=== PATIENT | male | born 1945 | race Caucasian/White ===

== ENCOUNTER → 2019-06-28 | Outpatient (CLI) | payer MEDICARE, BC ==
--- NOTE | 2019-06-28 13:04 | US ---
EXAMINATION TYPE: US venous doppler duplex LE RT DATE OF EXAM: 06/28/2019 12:47 PM COMPARISON: NONE CLINICAL HISTORY: I80.9 Phlebitis and thrombophlebitis of unspecifi. SIDE PERFORMED: Right TECHNIQUE: The lower extremity deep venous system is examined utilizing real time linear array sonog mango with graded compression, doppler sonography and color-flow sonography. VESSELS IMAGED: External Iliac Vein (EIV) Common Femoral Vein Deep Femoral Vein Greater Saphenous Vein * Femoral Vein Popliteal Vein Proximal Calf Veins (* superficial vessels) Grayscale, color doppler, spectral doppler imaging performed of the deep veins of the right lower ext remity. There is normal flow, compressibility, vascular waveforms. Right Leg: Negative for DVT IMPRESSION: No sonographic evidence of deep venous thrombosis within the right lower extremity.
== END ==
LOC: RADUSWWP 12:07
PROVIDERS: ATTEND Orthopaedic Surgery
DX: I80.9 Phlebitis and thrombophlebitis of unspecified site (principal); M25.571 Pain in right ankle and joints of right foot; M25.071 Hemarthrosis, right ankle

== ENCOUNTER → 2022-09-08 | Outpatient (CLI) | payer MEDICARE, BC ==
--- NOTE | 2022-09-08 11:14 | CT ---
EXAMINATION TYPE: CT shoulder RT wo con DATE OF EXAM: 09/08/2022 COMPARISON: None HISTORY: Right shoulder pain, possible rotator cuff tear CT DLP: 553.9 mGycm Automated exposure control for dose reduction was used. FINDINGS: There is severe narrowing of the glenohumeral joint with remodeling of the glenoid. Tiny cystic orourke es likely relate to geodes formation within the glenoid. There is spurring of the humeral head with n o acute fracture or dislocation. Tiny cysts are also seen involving the superior lateral margin of th e humeral head which can be associated with impingement. There is severe narrowing of the AC joint. Clavicle is somewhat inferior relative to acromion which m ay results in mass effect upon the rotator cuff. Hypertrophic and degenerative changes spine. Visualized lung field is clear. Coronary artery calcific ation noted IMPRESSION: 1. Severe glenohumeral joint arthropathy as discussed above complete loss of joint space and remodeli ng of the glenoid. 2. Severe AC joint arthropathy. 3. Hypertrophic and degenerative changes of the visualized vertebral column. 4. Coronary artery calcification correlate clinically.
== END | disposition home or self-care (01) ==
LOC: RADCTMAIN 10:08
PROVIDERS: ATTEND Orthopaedic Surgery Sports Medicine
DX: M19.011 Primary osteoarthritis, right shoulder (principal); I25.10 Atherosclerotic heart disease of native coronary artery without angina pectoris

== ENCOUNTER → 2022-10-05 | Outpatient (CLI) | payer MEDICARE, BC ==
[2022-10-05 13:17] LABS: Partial Thromboplastin Time 25.7 sec (22.0-30.0)
[2022-10-05 15:21] LABS: Prothrombin Time 10.8 sec (9.0-12.0)
[2022-10-05 19:28] LABS: HGB 13.9 g/dL (13.0-17.0); MCHC 32.3 g/dL (32.0-37.0); MCV 98.9 fL (80.0-97.0); Mean Platelet Volume 9.9 fL (9.5-12.2); NRBC Per 100 WBC 0 /100 WBCS (0.0-0.0); Platelet Count 219 X 10*3/uL (140-440); RBC 4.35 X 10*6/uL (4.40-5.60); RDW 13.6 % (11.5-14.5); WBC 5.48 X 10*3/uL (4.50-10.00)
[2022-10-05 20:29] LABS: Appearance,Urine Clear (Clear); Bilirubin,Urine Negative (Negative); Blood,Urine Negative (Negative); Color,Urine Yellow (Yellow); Ketones,Urine Negative (Negative); Nitrite,Urine Negative (Negative); Specific Gravity,Urine 1.023 (1.001-1.030); Urobilinogen,Urine 0.2 (0.2,1.0)
[2022-10-06 10:23] LABS: Albumin 3.8 g/dL (3.8-4.9); Albumin/Globulin Ratio 1.58 (1.60-3.17); Anion Gap 6.2 mmol/L (10.00-18.00); BUN/Creat Ratio 16.8 Ratio (12.00-20.00); Blood Urea Nitrogen 16.8 mg/dL (9.0-27.0); Calcium 8.9 mg/dL (8.7-10.3); Carbon Dioxide 26.8 mmol/L (20.0-27.5); Globulin 2.4 g/dL (1.6-3.3); Non-African American GFR(CKD) 73.3 (60.0-200.0); Potassium 4.2 mmol/L (3.5-5.5); Total Bilirubin 0.5 mg/dL (0.30-1.20); Total Protein 6.2 g/dL (6.2-8.2)
== END | disposition home or self-care (01) ==
LOC: LABPAT 11:34
PROVIDERS: ATTEND Orthopaedic Surgery Sports Medicine
DX: Z01.812 Encounter for preprocedural laboratory examination (principal); M19.012 Primary osteoarthritis, left shoulder
CPT/HCPCS: 36415; 80053; 81003; 85027; 85610; 85730; 87070

== ENCOUNTER 2022-10-13 07:43 | Day surgery (SDC) | payer MEDICARE, BC ==
[2022-10-10 08:42] VITALS: BMI 30.7
[~2022-10-13 07:43] MED LIST: ACETAMINOPHEN TAB 500 MG TAB PO PRN; GABAPENTIN 300 MG CAP PO PRN; HYDROmorphone 0.5 MG/0.5 ML SYRINGE IVP PRN; LACTATED RINGERS 1,000 ML IV SCH; MELOXICAM 7.5 MG TAB PO PRN; MIDAZOLAM 2 MG/2 ML VIAL IV PRN; ONDANSETRON 4 MG/2 ML VIAL IVP PRN; TRANEXAMIC ACID IN NACL,ISO-OS 1,000 MG in SALINE 1 100ML.BAG IVPB PRN
[2022-10-13] MEDS ORDERED: DEXAMETHASONE SOD PHOSPHATE 4 MG/ML 1 ML VIAL IVP ONE (08:43)
[2022-10-13] MEDS ORDERED: LACTATED RINGERS 1,000 ML IV ONE ×5 (08:44→13:06)
[2022-10-13] MEDS ORDERED: MIDAZOLAM 2 MG/2 ML VIAL IVP ONE (09:05)
--- NOTE | 2022-10-13 09:14 | P.ANPRN ---
Procedure Note - Anesthesia - Nerve Block Performed Right Interscalene Single Time Out Performed: Yes Date of Procedure: 10/13/22 Procedure Start Time: :04 Procedure Stop Time: 09:15 Location of Patient: PreOp Indication: Acute Post-Operative Pain, Requested by Surgeon Sedation Type: Sedate with meaningful contact maintained Preparation: Sterile Prep, Sterile Dressing Position: Sitting Catheter: None Needle Types: Facet Needle Gauge: 21 Ultrasound used to visualize needle placement: Yes Ultrasound used to observe medication spread: Yes Injectate: 0.5% Ropivacaine (see comment for volume) (25 ml + decadron 4 mg) Blood Aspirated: No Pain Paresthesia on Injection Noted: No Resistance on Injection: Normal Image Stored and Saved: Yes Events: Uneventful and Well Tolerated
[2022-10-13] MEDS ORDERED: SENNOSIDES-DOCUSATE SODIUM 1 EACH TAB PO PRN (09:18)
[2022-10-13] MEDS ORDERED: HYDROmorphone 0.5 MG/0.5 ML SYRINGE IVP PRN ×3 (09:18)
[2022-10-13] MEDS ORDERED: METOCLOPRAMIDE 5 MG/ML 2 ML VIAL IVP PRN (09:18)
[2022-10-13] MEDS ORDERED: ONDANSETRON 4 MG/2 ML VIAL IVP PRN (09:18)
[2022-10-13] MEDS ORDERED: hydrOXYzine pamoate 25 MG CAP PO PRN (09:18)
[2022-10-13] MEDS ORDERED: diphenhydrAMINE 25 MG CAP PO PRN (09:18)
[2022-10-13] MEDS ORDERED: HYDROcodone/APAP 7.5-325MG 1 EACH TAB PO PRN ×2 (09:22)
[2022-10-13] MEDS ORDERED: NEOSTIGMINE 1 MG/ML 10 ML VIAL ONE (09:59)
[2022-10-13] MEDS ORDERED: LIDOCAINE 2% INJ 20 MG/ML (2 ML VIAL) ONE (09:59)
[2022-10-13] MEDS ORDERED: fentaNYL (PF) 50 MCG/ML 2 ML AMP ONE (09:59)
[2022-10-13] MEDS ORDERED: PROPOFOL 10 MG/ML 20 ML VIAL IV ONE (09:59)
[2022-10-13] MEDS ORDERED: ROPIVACAINE 5 MG/ML 30 ML VIAL ONE (09:59)
[2022-10-13] MEDS ORDERED: GLYCOPYRROLATE 0.2 MG/ML 2 ML VIAL ONE (09:59)
[2022-10-13] MEDS ORDERED: ROCURONIUM 10 MG/ML (5 ML VIAL) IV ONE (09:59)
[2022-10-13] MEDS ORDERED: DEXAMETHASONE SOD PHOSPHATE 4 MG/ML 1 ML VIAL ONE (09:59)
[2022-10-13] MEDS ORDERED: SUCCINYLCHOLINE CHLORIDE 200 MG/10 ML VIAL IV ONE (09:59)
[2022-10-13] MEDS ORDERED: VANCOMYCIN 1,000 MG VIAL MISCELLANE ONE (10:34)
[2022-10-13] MEDS ORDERED: ceFAZolin 1,000 MG in SODIUM CHLORIDE 0.9% 1,000 ML IRRIGATION ONE (10:35)
--- NOTE | 2022-10-13 13:13 | XR ---
EXAMINATION TYPE: XR shoulder limited RT DATE OF EXAM: 10/13/2022 CLINICAL HISTORY: Postop TECHNIQUE: Single AP view of the right shoulder was obtained. COMPARISON: None. FINDINGS: There are new postoperative changes of the right shoulder including intact shoulder prosth esis appropriately positioned with screws into the glenoid. There is extensive soft tissue swelling, subcutaneous gas, as well as joint effusion with widening of the subacromial space. The visualized ri bs are intact and unremarkable. IMPRESSION: Postsurgical changes of right shoulder arthroplasty as above.
[2022-10-13] MEDS: LACTATED RINGERS 1,000 ML IV SCH ×2 (16:28→21:26)
--- NOTE | 2022-10-13 18:48 | OP ---
OPERATIVE REPORT DRIVER SALES: Kofi Vincent PA-C PREOPERATIVE DIAGNOSIS: Right shoulder osteoarthrosis. POST PROCEDURE DIAGNOSIS: Right shoulder osteoarthrosis. OPERATION: Right reverse total shoulder arthroplasty. ANESTHESIA: General endotracheal. ESTIMATED BLOOD LOSS: 100 mL. DRAINS: None. COMPLICATIONS: None apparent. DISPOSITION: Postanesthesia care unit. INDICATIONS: Mr. Lora is a very pleasant 77-year-old male with longstanding right shoulder pain. Workup including x-rays revealed advanced osteoarthrosis of the right shoulder. At this point, it is felt this he has failed conservative management, and he would like to proceed with operative intervention. The risks of procedure were all discussed with him in detail. These risks include, but are not limited to, risk of infection, nerve damage, bleeding, pain, instability in the shoulder, loosening of the implants, and deep infection. There is also small risk of deep vein thrombosis which could lead to fatal pulmonary embolism. The patient understands the risks. All of his questions with regard to the risks of procedure were answered to his satisfaction. An appropriate informed consent was obtained. DESCRIPTION OF PROCEDURE: The patient was identified in the preoperative holding area. Surgical site was marked by both the patient and myself. He was given 2 grams of Ancef IV for prophylactic purposes. He was then transported to the operative suite. He was placed supine on the operating room table. General anesthetic was then administered and dosed per the anesthesia department without apparent complication. Examination under anesthesia was then performed of the left shoulder. He had elevation to 110 degrees. External rotation at the side was to 20 degrees. The patient was then placed in the beach chair position well-padded in preparation for surgery. Great care was taken to ensure that the cervical spine was in neutral alignment and maintained that way throughout the operative procedure. Great care was also taken to ensure that his legs were appropriately padded as well. The patient's right upper extremity was then prepped and draped in the usual sterile fashion. Standard surgical pause was undertaken to ensure that we were operating on the correct site and that appropriate preoperative antibiotics had been given. All staff in the room were in agreement, and we proceeded. The acromion, AC joint, clavicle, and coracoid were marked with a surgical pen. A planned incision starting at the level of the clavicle and extending distally over the deltopectoral interval approximately 1 cm lateral to the coracoid was then marked with a surgical pen. The incision was then made with a 10 blade scalpel. Dissection was carried down sharply to the deltoid fascia. The deltopectoral interval was then identified at the level of the clavicle. A small band retractor was then placed under the proximal deltoid. We then released the deltoid fascia on the lateral aspect of the cephalic vein. The vein was preserved and left in its bed medially. The cephalic vein was protected throughout the entire case. I then identified the clavipectoral fascia. This was incised proximally to the level of the coracoacromial ligament. The coracoacromial ligament was left intact. I then used my finger to spread the interval between the conjoint tendon and the subscapularis. I then felt for the axillary nerve which was readily palpable. I then cleared the subacromial and subdeltoid spaces of bursal and scar tissue. I then utilized a Bland retractor to hold the deltoid and expose the humeral head. I then proceeded to release the subscapularis in the anterior inferior shoulder capsule. The rotator cuff was then inspected. He did have tear of the supraspinatus. The rotator interval was identified. The course of the biceps tendon was also identified. I then released the rotator interval. This was released at the base of the coracoid and then out laterally. The subscapularis and the capsule were then released intratendinously. The subscapularis and capsule release extended distally in a lazy-S fashion approximately 1 cm medial to the biceps tendon. I then continued to release the capsule along the inferior neck in a vertical fashion to approximately the 6 o'clock position. Great care was taken to ensure that the capsule was always visualized as it was released as to avoid injuring the axillary nerve. I then brought a Garcia marketing sales consultant with the arm externally rotated and abducted. I continued to release the capsule inferomedially to the 4 o'clock position. The inferior osteophytes were now removed as well. This was done with a rongeur. I then proceeded with preparation of the humerus. I removed all the goat's vivas osteophytes. I then removed the subchondral plate from the superior aspect of the humeral head utilizing a large rongeur. I then used the starting reamer to gain access to the humeral canal. This was 1 cm medial to the rotator cuff insertion and 1 cm posterior to the bicipital groove. I then prepared the humeral canal with hand reaming. I started with a 6 mm reamer and progressed incrementally until firm resistance was encountered at 14 mm. The reamer handle was then left in place. I then utilized a humeral resection guide set at 30 degrees of retrotorsion. The cutting block was then set 1 to 2 mm above the insertion of the rotator cuff. I then proceeded to osteotomize the humeral head with an oscillating saw. I then removed the resection guide and then completed the osteotomy. I then proceeded with trial stem placement. A trial size 14 was then broached in the canal starting with a 6 mm broach up to a 14 broach. The 14 trial stem was then left in place. I made a decision to proceed with a reverse total shoulder arthroplasty given his rotator cuff tear. At this point, I did release the biceps tendon. This was tenotomized at the level of the superior labrum. A bone hook was then used to pull the humerus out laterally. I then inspected the joint for any loose bodies. He did have multiple medium-sized loose bodies. These were all removed. The Bhattman retractor was then placed on the posterior glenoid rim. The arm was placed approximately 80 degrees of abduction and in slight flexion on the Garcia stand. I then proceeded to remove the hypertrophic labrum to definitively identify the actual glenoid. I then utilized a mini base plate starting guide. The pin was placed in the center of the glenoid with approximately 10 degrees of inferior tilt. I then utilized the mini base plate reamer. Reaming was done as minimal as possible as to preserve as much subchondral bone as possible. I then inserted the real mini base plate over the guide pin. This was impacted firmly onto the glenoid. The threaded guide pin was then removed. I then measured for length. A 30 mm central screw was then placed. The screw had an outstanding purchase in bone. I was able to rotate the scapula through the screwdriver when the screw was fully seated. I then proceeded to place the peripheral locking screws. The inferior screw was 25 mm. The anterior and posterior screws were 15 mm, and the superior screw was 20 mm in length. The Stanford taper was then dried. I used a standard 36 mm glenosphere. It was offset slightly as to inferiorize the glenosphere slightly. The Stanford taper was dried, and then the real glenosphere was impacted onto a dry Stanford taper. I then proceeded with trial. I utilized a trial tray and poly. It was a mildly difficult reduction. The shoulder was stable throughout a full range of motion. There was no impingement noted. The shoulder was then redislocated. I made a decision to proceed with the standard tray and a standard poly. The wound was then thoroughly irrigated with sterile saline solution with antibiotic added via pulsed lavage. I also utilized the Irrisept solution at this time. The trial humeral component was removed. I had the car sales representative open a [employer] size 14 mini stem, a standard tray, and a standard poly. The 14 mini stem was then impacted into the canal in approximately 30 degrees of retrotorsion. The Stanford taper was dried, and then the standard tray and standard poly were then impacted onto the real stem with a dry Stanford taper. The shoulder was again reduced. Again, it was a fairly difficult reduction. It was stable throughout a full range of motion. There was no impingement noted. The conjoint tendon was without any undue tension. I felt for the axillary nerve which was also readily palpable. At this point in time, no further work was deemed necessary. The shoulder was again thoroughly irrigated with sterile saline solution with antibiotic added via pulse lavage. The remaining Irrisept solution was also utilized at this time. Approximately 500 mg of vancomycin powder was then placed deep. The deltopectoral interval was then reapproximated with 0 Vicryl interrupted suture. The subcutaneous tissue was again thoroughly irrigated, and then the remaining 500 mg of vancomycin powder was then placed subcutaneously. The subcutaneous tissue was closed with 2-0 Vicryl interrupted suture, and the skin was closed with a running 3-0 Quill suture. Dermabond was applied to the incision. A sterile dressing was applied, and the patient's right upper extremity was placed into a standard sling. All sponge and needle counts were deemed correct prior to closure. The patient tolerated the procedure without apparent complication. He was transferred to the recovery room in stable condition. MMODL / IJN: [id number] / MAKENZIE
[2022-10-13] MEDS: CALCIUM CARBONATE 500 MG CHEWABLE PO PRN ×2 (18:57→23:19)
[2022-10-14] MEDS: LACTATED RINGERS 1,000 ML IV SCH (00:59)
--- NOTE | 2022-10-14 07:16 | CONS ---
CONSULTATION REASON FOR CONSULTATION: Advice regarding pulmonary embolism and other medical issues, requested by Orthopedic Surgery. HISTORY OF PRESENT ILLNESS: This 77-year-old gentleman with a past medical history of multiple medical problems including DVT and pulmonary embolism, underwent right shoulder arthroplasty. The patient was taking Xarelto. There is no history of any fever, rigors, chills, chest pain, palpitations, shortness of breath at this time. PAST MEDICAL HISTORY: Reviewed and include DVT, pulmonary embolism. HOME MEDICATIONS: Reviewed and include Xarelto. ALLERGIES: None. FAMILY HISTORY: No history of heart disease or strokes in the family. SOCIAL HISTORY: Previous history of smoking. REVIEW OF SYSTEMS: 14-point review of systems is negative except as mentioned earlier. PHYSICAL EXAMINATION: VITAL SIGNS: Pulse is 50, blood pressure is 170/75, respirations 16. HEENT: Conjunctivae normal. NECK: No JVD. CARDIOVASCULAR: S1, S2, muffled. RESPIRATION: Breath sounds diminished at the bases. No rhonchi. No crackles. ABDOMEN: Soft, nontender. LEGS: No edema. No swelling. NERVOUS SYSTEM: No focal deficit. SKIN: No ulcer, rash, bleeding. JOINTS: Status post right shoulder arthroplasty. LABORATORY DATA: Labs are not available. ASSESSMENT: 1. Status post right shoulder arthroplasty. 2. History of pulmonary embolism. 3. History of deep venous thrombosis. 4. History of multiple medical issues. RECOMMENDATIONS: In this 77-year-old gentleman, who was admitted after surgery at this time, the patient is currently stable. I would recommend to continue the current medications and DVT prophylaxis. Initiate Xarelto tomorrow and closely follow with primary physician in the outpatient setting. We will follow the patient closely with you. Thank you for letting us participate in the care of this patient. MMODL / IJN: [id number] /
[2022-10-14] MEDS ORDERED: PANTOPRAZOLE 40 MG TABLET PO SCH (07:30)
[2022-10-14 07:50] VITALS: BP 101/63; PULSE 85; RESP 16; TEMP 97.9
[2022-10-14] MEDS ORDERED: RIVAROXABAN 10 MG TAB PO SCH (09:00)
[2022-10-14] MEDS ORDERED: MULTIVITAMINS, THERA 1 EACH TAB PO SCH (09:00)
[2022-10-14 09:03] LABS: Basophils # (A) 0.01 X 10*3/uL (0.00-0.10); Basophils % (A) 0.1 %; Eosinophils # (A) 0 X 10*3/uL (0.04-0.35); Eosinophils % (A) 0 %; HCT 36.3 % (39.6-50.0); HGB 12.2 g/dL (13.0-17.0); Immature Grans, Automated 0.5 %; Lymphocytes # (A) 1.49 X 10*3/uL (0.90-5.00); Lymphocytes % (A) 11.5 %; MCH 32.5 pg (27.0-32.0); MCHC 33.6 g/dL (32.0-37.0); MCV 96.8 fL (80.0-97.0); Monocytes # (A) 1.05 X 10*3/uL (0.20-1.00); Monocytes % (A) 8.1 %; NRBC Per 100 WBC 0 /100 WBCS (0.0-0.0); Neutrophils # (A) 10.31 X 10*3/uL (1.80-7.70); Neutrophils % (A) 79.8 %; Platelet Count 208 X 10*3/uL (140-440); RBC 3.75 X 10*6/uL (4.40-5.60); RDW 13.2 % (11.5-14.5); WBC 12.93 X 10*3/uL (4.50-10.00)
--- NOTE | 2022-10-15 05:10 | PN ---
PROGRESS NOTE DATE OF SERVICE: 10/14/2022 SUBJECTIVE: This 77-year-old gentleman, who was admitted after shoulder arthroplasty . No chest pain. No palpitation. OBJECTIVE: VITAL SIGNS: Pulse 85, blood pressure 101/60, and respirations 16. CHEST: Clear to auscultation. CARDIOVASCULAR: S1, S2. ABDOMEN: Soft. EXTREMITIES: Right shoulder surgery status post. LABORATORY DATA: Reviewed. ASSESSMENT: 1. Status post right shoulder surgery. 2. History of pulmonary embolism. 3. History of deep venous thrombosis. 4. History of multiple medical issues. RECOMMENDATIONS: I recommended to continue with current management and treatment. I re-initiated anticoagulation. Closely follow with primary physician. Rest of the recommendations per Orthopedic Surgery. Further recommendations to follow. MMODL / IJN: [id number] / MTDPaula
== END 2022-10-14 14:20 | disposition home or self-care (01) ==
LOC: OR 07:43 → 4SSUR 11:54 → OR 10-14 14:20
PROVIDERS: ATTEND Orthopaedic Surgery Sports Medicine
DX: M19.011 Primary osteoarthritis, right shoulder (principal); M75.101 Unspecified rotator cuff tear or rupture of right shoulder, not specified as traumatic; M24.011 Loose body in right shoulder; M25.711 Osteophyte, right shoulder; Z86.711 Personal history of pulmonary embolism; Z86.718 Personal history of other venous thrombosis and embolism; Z79.01 Long term (current) use of anticoagulants; Z79.891 Long term (current) use of opiate analgesic; Z79.899 Other long term (current) drug therapy; Z90.49 Acquired absence of other specified parts of digestive tract; Z98.890 Other specified postprocedural states; Z82.49 Family history of ischemic heart disease and other diseases of the circulatory system; Z87.891 Personal history of nicotine dependence; F10.20 Alcohol dependence, uncomplicated; G89.18 Other acute postprocedural pain
CPT/HCPCS: 23472; 64415; 76942; 85025; 88300; 73020; C1776; J2250; J3370; J1100; J2765; J0690 ×3; J2405

== ENCOUNTER → 2022-12-12 | Outpatient (CLI) | payer MEDICARE, BC | END | disposition home or self-care (01) | LOC: LABPAT 14:50 | PROVIDERS: ATTEND Orthopaedic Surgery | DX: Z01.812 Encounter for preprocedural laboratory examination (principal); M16.12 Unilateral primary osteoarthritis, left hip | CPT/HCPCS: 80053; 81003; 85027; 85610; 85730; 87070; 93005 ==

== ENCOUNTER → 2022-12-16 | Outpatient (CLI) | payer MEDICARE, BC ==
[2022-12-16 15:07] LABS: INR 1.1 (<1.2); Partial Thromboplastin Time 26.7 sec (22.0-30.0); Prothrombin Time 11.1 sec (9.0-12.0)
[2022-12-16 19:00] LABS: HCT 42.7 % (39.6-50.0); HGB 14.2 g/dL (13.0-17.0); MCHC 33.3 g/dL (32.0-37.0); MCV 96.2 fL (80.0-97.0); Mean Platelet Volume 9.9 fL (9.5-12.2); NRBC Per 100 WBC 0 /100 WBCS (0.0-0.0); Platelet Count 244 X 10*3/uL (140-440); RBC 4.44 X 10*6/uL (4.40-5.60); RDW 13.1 % (11.5-14.5); WBC 4.89 X 10*3/uL (4.50-10.00)
[2022-12-16 19:11] LABS: Albumin/Globulin Ratio 1.6 (1.60-3.17); Anion Gap 9.6 mmol/L (10.00-18.00); BUN/Creat Ratio 16.5 Ratio (12.00-20.00); Blood Urea Nitrogen 16.5 mg/dL (9.0-27.0); Calcium 8.8 mg/dL (8.7-10.3); Carbon Dioxide 25.4 mmol/L (20.0-27.5); Globulin 2.5 g/dL (1.6-3.3); Non-African American GFR(CKD) 73.3 (60.0-200.0); Potassium 4.1 mmol/L (3.5-5.5); Total Bilirubin 0.4 mg/dL (0.30-1.20); Total Protein 6.5 g/dL (6.2-8.2)
[2022-12-16 20:54] LABS: Appearance,Urine Clear (Clear); Bilirubin,Urine Negative (Negative); Blood,Urine Negative (Negative); Color,Urine Yellow (Yellow); Ketones,Urine Negative (Negative); Nitrite,Urine Negative (Negative); Specific Gravity,Urine 1.022 (1.001-1.030); Urobilinogen,Urine 0.2 (0.2,1.0)
== END | disposition home or self-care (01) ==
LOC: LABPAT 14:12
PROVIDERS: ATTEND Orthopaedic Surgery
DX: Z01.812 Encounter for preprocedural laboratory examination (principal); M16.12 Unilateral primary osteoarthritis, left hip
CPT/HCPCS: 80053; 81003; 85027; 85610; 85730; 87070

== ENCOUNTER 2022-12-23 05:45 | Day surgery (SDC) | payer MEDICARE, BC ==
[~2022-12-23 05:45] MED LIST changes: -ACETAMINOPHEN TAB 500 MG TAB PO PRN; -GABAPENTIN 300 MG CAP PO PRN; -HYDROmorphone 0.5 MG/0.5 ML SYRINGE IVP PRN; -LACTATED RINGERS 1,000 ML IV SCH; -MELOXICAM 7.5 MG TAB PO PRN; -MIDAZOLAM 2 MG/2 ML VIAL IV PRN; -ONDANSETRON 4 MG/2 ML VIAL IVP PRN; +ROPIVACAINE/EPI/CLONIDINE/KET 50 ML SYRINGE MISCELLANE PRN; -TRANEXAMIC ACID IN NACL,ISO-OS 1,000 MG in SALINE 1 100ML.BAG IVPB PRN
[2022-12-23] MEDS ORDERED: LACTATED RINGERS 1,000 ML IV SCH (05:55)
[2022-12-23] MEDS ORDERED: MIDAZOLAM 2 MG/2 ML VIAL IV PRN (05:55)
[2022-12-23] MEDS ORDERED: ONDANSETRON 4 MG/2 ML VIAL IVP PRN ×2 (06:00→10:11)
[2022-12-23] MEDS ORDERED: TRANEXAMIC ACID IN NACL,ISO-OS 1,000 MG in SALINE 1 100ML.BAG IVPB PRN (06:00)
[2022-12-23] MEDS ORDERED: KETOROLAC 15 MG/ML 1 ML VIAL IVP PRN (06:00)
[2022-12-23] MEDS ORDERED: FAMOTIDINE 20 MG/2 ML VIAL IVP PRN (06:00)
[2022-12-23] MEDS ORDERED: ACETAMINOPHEN TAB 500 MG TAB PO PRN (06:00)
[2022-12-23] MEDS ORDERED: DEXAMETHASONE SOD PHOSPHATE 10 MG/ML 1 ML VIAL IV PRN (06:00)
[2022-12-23] MEDS ORDERED: DOCUSATE 100 MG CAP PO PRN (06:00)
[2022-12-23] MEDS ORDERED: oxyCODONE ER 10 MG TAB.ER.12H PO PRN (06:00)
[2022-12-23] MEDS ORDERED: TRANEXAMIC ACID IN NACL,ISO-OS 1,000 MG in SALINE 1 100ML.BAG IV PRN (06:00)
[2022-12-23] MEDS ORDERED: ONDANSETRON 4 MG/2 ML VIAL ONE (06:46)
[2022-12-23] MEDS ORDERED: DEXAMETHASONE SOD PHOSPHATE 4 MG/ML 1 ML VIAL IVP ONE (06:47)
[2022-12-23] MEDS ORDERED: MIDAZOLAM 2 MG/2 ML VIAL IVP ONE (06:55)
[2022-12-23] MEDS ORDERED: HYDROmorphone 0.5 MG/0.5 ML SYRINGE IVP PRN ×4 (07:00→10:11)
[2022-12-23] MEDS ORDERED: ePHEDrine 50 MG/ML 1 ML VIAL ONE (07:44)
[2022-12-23] MEDS ORDERED: SODIUM CHLORIDE 0.9% (PF) 10 ML VIAL ONE (07:44)
[2022-12-23] MEDS ORDERED: TRANEXAMIC ACID IN NACL,ISO-OS 1,000 MG/100 ML BAG ONE (07:44)
[2022-12-23] MEDS ORDERED: ROPIVACAINE 5 MG/ML 30 ML VIAL ONE (07:44)
[2022-12-23] MEDS ORDERED: MIDAZOLAM 2 MG/2 ML VIAL ONE (07:44)
[2022-12-23] MEDS ORDERED: GLYCOPYRROLATE 0.2 MG/ML 2 ML VIAL ONE (07:44)
[2022-12-23] MEDS ORDERED: SUCCINYLCHOLINE CHLORIDE 200 MG/10 ML VIAL IV ONE (07:44)
[2022-12-23] MEDS ORDERED: ROCURONIUM 10 MG/ML (5 ML VIAL) IV ONE (07:44)
[2022-12-23] MEDS ORDERED: fentaNYL (PF) 50 MCG/ML 2 ML AMP ONE (07:44)
[2022-12-23] MEDS ORDERED: PROPOFOL 10 MG/ML 20 ML VIAL IV ONE (07:44)
--- NOTE | 2022-12-23 08:44 | P.ANPRN ---
Procedure Note - Anesthesia - Nerve Block Performed Left Mckinley Single Time Out Performed: Yes ([id number]) Date of Procedure: 12/23/22 Procedure Start Time: :54 Procedure Stop Time: 07:01 Location of Patient: PreOp Indication: Acute Post-Operative Pain, Requested by Surgeon Sedation Type: Sedate with meaningful contact maintained Preparation: Sterile Prep Position: Supine Catheter: None Needle Types: Pajunk Needle Gauge: 21 Ultrasound used to visualize needle placement: Yes Ultrasound used to observe medication spread: Yes Injectate: 0.5% Ropivacaine (see comment for volume) (15 mL of 0.5% ropivacaine preservative-free mixed with 5 mL of preservative-free normal saline, a total of 20 mL of block solution used.) Blood Aspirated: No Pain Paresthesia on Injection Noted: No Resistance on Injection: Normal Image Stored and Saved: Yes Events: Uneventful and Well Tolerated
[2022-12-23] MEDS ORDERED: LACTATED RINGERS 1,000 ML IV ONE (09:49)
[2022-12-23] MEDS ORDERED: NALOXONE 0.4 MG/ML 1 ML VIAL IV PRN (10:11)
[2022-12-23] MEDS ORDERED: HYDROcodone/APAP 5-325MG 1 EACH TAB PO PRN (10:11)
[2022-12-23] MEDS ORDERED: hydrOXYzine pamoate 25 MG CAP PO PRN (10:11)
--- NOTE | 2022-12-23 10:18 | FL ---
EXAMINATION TYPE: FL guidance operating room, XR Hip Limited LT DATE OF EXAM: 12/23/2022 CLINICAL HISTORY: Left hip pain and osteoarthritis. TECHNIQUE: Fluoroscopy. Intraoperative limited views left hip. COMPARISON: None. FINDINGS: Fluoroscopic guidance was provided during left hip replacement procedure performed by Dr. Rich. A total of 30 seconds of fluoroscopic time was utilized during the procedure and 6 spot im ages was acquired. Total DAP 1.2481 Gy cm2. Images show metallic hardware from total left hip arthroplasty satisfactory in position on intraopera tive images obtained. IMPRESSION: As Above.
--- NOTE | 2022-12-23 10:22 | P.OP ---
Date of Procedure: 12/23/22 Preoperative Diagnosis: 1. Left hip osteoarthritis 2. History of DVT and PE Postoperative Diagnosis: Same Procedure(s) Performed: Left direct anterior total hip arthroplasty Implants: 1. Gilbert Trident II Acetabular Cup, Size #52 2. Gilbert Insignia Size #6 Femoral Stem, Standard Offset 3. Biolox delta femoral head, 36 mm, - 5 neck Anesthesia: GETA, regional Surgeon: Bobby Rich Chemical Processing Supervisor #1: Yaniv Cano Estimated Blood Loss (ml): 200 IV fluids (ml): 1,200 Pathology: none sent Condition: stable Disposition: PACU Indications for Procedure: The patient is a very pleasant 77-year-old man who had been seeing for the last several years regards to his left hip pain. His initial set of weightbearing x- rays in my office showed mild to moderate arthritis, but his exam was consistent with severe hip arthritis has had exquisite groin pain and pain with passive range of motion of the hip. He had an MRI of the left hip which showed arthritic changes. He also underwent an image guided left hip injection and had complete relief of his symptoms. Given all of this we both agreed that degenerative changes in his hip or the most likely cause of his pain and decided to proceed with a hip replacement. He understands the potential for referred pain from his back contributing to his leg pain. I had a long discussion with the patient in the office on the potential risks and complications of an elective total hip replacement through a direct anterior approach. Risks discussed include, but are certainly not limited to, risks from anesthesia, superficial infection requiring local wound care or antibiotics, deep brenda-prosthetic joint infection and the treatment required to eradicate infection, intraoperative fracture, postoperative periprosthetic fracture, damage to local blood vessels or nerves particularly the lateral femoral cutaneous nerve, delayed wound healing requiring local wound care or possibly surgical debridement, hip dislocation, leg length discrepancy, soft tissue irritation around the total hip implant such as iliopsoas tendinitis or trochanteric bursitis, wear and osteolysis from the implants, squeaking or audible noises, groin pain, thigh pain, heterotopic ossification, stiffness, aseptic loosening of the implants, dissatisfaction with surgical outcome, need for revision surgery, DVT, PE, swelling of the operative extremity, acute coronary event, stroke, failure to thrive, and possibly loss of life or limb. The patient understands that while these are the most common complications after an elective hip replacement there are certainly other less common complications possible. They were given ample time to ask questions regarding the potential complications of a hip replacement. Following our discussion the patient provided their verbal and written consent to go forward with an elective total hip replacement. Operative Findings: Full thickness cartilage loss on the femoral head consistent with end-stage arthritis Description of Procedure: The patient was identified in the preoperative holding area and the correct hip was marked with my initials. I reviewed the procedure and consent with the patient. All of their questions were answered. The patient was then brought back into the operating room by anesthesia. While on the [facility] anesthesia was administered by the anesthesia team. Preoperative antibiotics and tranexamic acid were also given. After the patient was under anesthesia I examined their ankles to determine their preoperative leg length discrepancy. The skin over the anterior aspect of the hip was shaved to remove hair over the site of planned incision. Both feet and ankles were padded with webril and boots for the Arnold were applied. The patient was then carefully transferred onto the Arnold table. A perineal post was immediately placed. The arms were placed on arm holders and were well-padded. Both boots were secured to the spars on the Arnold table. The patient was positioned so that the pelvis was centered over the post. Nonsterile drapes were applied. A timeout was performed identifying the correct patient, operative extremity, and procedure. At this point fluoroscopy was brought in to take preoperative images of the pelvis and operative hip. Using the standing AP pelvis from the office as a template, a comparable image was obtained with fluoroscopy. A metallic bar was used to create a bi-ischial line for use as a reference to leg length adjustments during the procedure. Global offset was also measured on both the operative and nonoperative leg. Fluoroscopy was then brought out and a pre-scrub using a chlorhexidine scrub brush was performed. The operative limb was then prepped and draped in the standard sterile fashion. An anterior longitudinal incision was made lateral and distal to the ASIS. The skin and subcutaneous tissues were incised sharply. The underlying tensor fascia was identified and incised in its midportion. The fascia was dissected free from the underlying muscle and the muscle belly was retracted. A blunt tipped cobra retractor was placed over the superior neck under the muscle fibers of the gluteus minimus. The deep enveloping fascia of the tensor was incised. The anterior leash of vessels were then identified and cauterized. The fascia between the rectus and the capsule was then incised and the pre-capsular fat was excised. A second Cobra was placed inferior to the neck. The interval between the rectus and iliocapsularis and the hip capsule was developed and a retractor was placed carefully over the anterior rim of the acetabulum. A T-shaped anterior capsulotomy was performed. The superior capsular leaflet was left in place in the inferior capsular flap was excised. The Cobra retractors were placed intracapsularly. We then made a femoral neck osteotomy according to preoperative and intraoperative templating and confirmed the level of the osteotomy using fluoroscopic imaging. The femoral head was removed, passed off to the back table, and sized. The superior capsular flap was excised. Retractors were placed circumferentially exposing the acetabulum. We then circ umferentially debrided the acetabulum free of labrum and osteophytes. The pulvinar was removed to fully visualize the cotyloid fossa. We then sequentially reamed to achieve peripheral fit and excellent bleeding subchondral bone. The socket was thoroughly irrigated. The acetabular component was impacted into the appropriate position using fluoroscopy to guide version, inclination, and depth of insertion taking care to have a comparable image of the AP pelvis to the standing image taken in the office. An excellent press-fit was achieved and final position was confirmed using fluoroscopy. The press fit was augmented with bony cancellus dome screws. The liner was then impacted into the socket. Attention was then turned to the femur. The remnant dorsal lateral capsule was excised. The short external rotators were visible and protected. A bone hook was used to confirm appropriate translation of the trochanter away from the acetabulum. The leg was then extended and adducted and the bone hook was used to elevate the femur for broaching. A box osteotome and blunt tipped canal sound was then utilized to gain access to the femoral canal. We then sequentially broached the femur in appropriate anteversion until excellent torsional stability was achieved. The neck cut was brought flush to the trial broach with a calcar planar. A trial neck and head were then placed onto the b silva and the hip was atraumatically reduced under direct visualization. External rotation to 90 was performed to assess stability. Fluoroscopy was brought in. An AP and lateral fluoroscopic image of the proximal femur was obtained to assess position and fill of the trial broach. An AP of the pelvis was then obtained and matched to the preoperative image taken. A bi-ischial bar was then placed and measurements were taken to assess changes in length and offset. The hip was then carefully dislocated, the proximal femur was exposed, and the trial implants were removed. The wound and proximal femur was thoroughly irrigated using sterile saline and pulsatile lavage. The final femoral implant was dispensed and gently tapped into place generating an excellent press-fit. The trunnion was cleansed and the final head was tapped into place to engage the Stanford taper. The acetabulum was irrigated and visualized to be free of debris. The hip was carefully reduced. Stability was checked clinically with external rotation to 90 and there was no evidence of instability. Final fluoroscopic images were taken. The wound was then thoroughly irrigated and soaked with a dilute Betadine rinse for 3 minutes. 3 L of sterile saline was irrigated through the wound using pulsatile lavage. Local anesthetic cocktail was injected into the soft tissues around the surgical field. A deep drain was placed. The wound was then closed in layers. A sterile dressing was placed over the surgical incision and drain site. The drapes were taken down and the patient was carefully transferred off of the Arnold table. Following removal of the boots the leg lengths felt acceptable. The patient was then taken to recovery room having tolerated the procedure well. Yaniv Cano PA-C was required as a skilled warehouse administrative assistant for patient positioning, surgical exposure, retraction, placement of implants, and closure of the surgical wound. PLAN: The patient can weight-bear as tolerated on the operative extremity. 2 doses of postoperative antibiotics. DVT prophylaxis with Xarelto 20 mg daily given his history of DVT and PE. Also since he does have a history of PE we will consult hematology for recommendations and further guidance. Physical therapy for gait training. Discontinue drain postoperative day #1 if output is less than 100 mL per shift.
[2022-12-23] MEDS: HYDROcodone/APAP 5-325MG 1 EACH TAB PO PRN (13:19)
[2022-12-23] MEDS: LACTATED RINGERS 1,000 ML IV SCH ×2 (13:20→21:34)
--- NOTE | 2022-12-23 16:56 | P.CONS ---
History of Present Illness - Reason for Consult Consult date: 12/23/22 Management of anticoagulation - Chief Complaint Hip surgery - History of Present Illness Mr. Lora is a 77-year-old gentleman with a past medical history significant for osteoarthritis of the left hip, DVT of the left leg, and pulmonary embolism who was admitted for elective RAYMUNDO of the left hip. He underwent this procedure on 12/23/2022, which he tolerated without complications. He was previously on Coumadin given his history of VTE. Hematology has been consulted with regards to management of Xarelto in the perioperative setting. He notes he last took Xarelto on 12/19/2022 and has withheld treatment for 3 days prior to surgery. He originally had DVT in the left leg approximately 25 years ago. As far as he could recall, he did not have any provoking events, but did note that he was smoking at that time. He was subsequently had a pulmonary embolism approximately 10 years ago. 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 He was then placed on Xarelto, which he has been tolerating without bleeding diathesis. Review of Systems 14 point review of systems conducted with pertinent positives and negatives as noted per HPI Past Medical History Past Medical History: Chest Pain / Angina, Deep Vein Thrombosis (DVT), GERD/Reflux, Osteoarthritis (OA), Pulmonary Embolus (PE) Additional Past Medical History / Comment(s): DVT bilateral legs/lung approximately 7 yrs ago, chest pain many years ago, past benign colon polyps History of Any Multi-Drug Resistant Organisms: None Reported Past Surgical History: Appendectomy, Hernia Repair, Joint Replacement, Orthopedic Surgery, Tonsillectomy Additional Past Surgical History / Comment(s): Total R reverse shoulder replacement, L thumb fused, R carpal tunnel release, colonoscopies/benign polyps, cataracts removed bilaterally, umbilical hernia, hemorrhoidectomy Additional Past Anesthesia/Blood Transfusion Reaction / Comm: Pt has never had a blood transfusion. Past Psychological History: No Psychological Hx Reported Additional Psychological History / Comment(s): Pt resides with spouse Smoking Status: Former smoker Past Alcohol Use History: Occasional Additional Past Alcohol Use History / Comment(s): Pt started smoking in 1963 and quit at age 31 yrs/1975 - Past Family History Mother Family Medical History: No Reported History Father Family Medical History: Myocardial Infarction ([place]), Vascular Disorder Additional Family Medical History / Comment(s): Aneurysms, [place] in his 60s Brother(s) Family Medical History: Myocardial Infarction ([place]) Additional Family Medical History / Comment(s): [place] in his 60s Medications and Allergies Home Medications Medication Instructions Recorded Confirmed Type Multivit-Min/Folic/Vit K/Lycop 1 each PO HS 10/10/22 12/23/22 History [Men's Multivitamin Tablet] Rivaroxaban [Xarelto] 20 mg PO W/SUPPER 10/10/22 12/23/22 History Docusate [Colace] 100 mg PO BID #60 capsule 12/23/22 Rx HYDROcodone/APAP 5-325MG [[place] 1 - 2 tab PO Q6HR PRN 7 Days #32 12/23/22 Rx 5-325] tab Omeprazole 40 mg PO DAILY 30 Days #30 cap 12/23/22 Rx Allergies Allergy/AdvReac Type Severity Reaction Status Date / Time No Known Allergies Allergy Verified 12/23/22 06:12 Physical Exam Vitals: Vital Signs Temp Pulse Pulse Resp BP Pulse Ox 12/23/22 15:13 96.0 F L 65 18 94/60 97 12/23/22 12:52 96.2 F L 56 L 19 108/64 96 12/23/22 12:01 48 L 6 L 102/58 94 L 12/23/22 11:30 43 L 16 105/65 95 12/23/22 11:00 51 L 14 100/60 100 12/23/22 10:45 47 L 14 101/64 100 12/23/22 10:30 52 L 14 99/59 100 12/23/22 10:15 51 L 14 112/67 97 12/23/22 10:07 97 F L 59 L 14 112/67 97 12/23/22 07:08 55 L 16 110/74 97 12/23/22 06:11 97.7 F 62 18 123/80 96 Intake and Output 12/23/22 12/23/22 12/23/22 06:59 14:59 22:59 Intake Total 100 1650 Output Total 250 Balance 100 1400 Intake: IV 100 1650 Output: Urine 50 Estimated Blood Loss 200 Other: Weight 94.8 kg 94.8 kg - Constitutional General appearance: cooperative, no acute distress - EENT Eyes: EOMI - Respiratory Respiratory: bilateral: CTA - Cardiovascular Rhythm: regular - Gastrointestinal General gastrointestinal: no distended, normal bowel sounds, soft - Integumentary Integumentary: no rash - Neurologic Neurologic: CNII-XII intact Pump attached to the the left hip draining blood Assessment and Plan (1) Osteoarthritis of left hip Current Visit: Yes Status: Acute Code(s): M16.12 - UNILATERAL PRIMARY OSTEOARTHRITIS, LEFT HIP SNOMED Code(s): 699743513242894 (2) Deep vein thrombosis (DVT) of left lower extremity Current Visit: Yes Status: Chronic Code(s): I82.402 - ACUTE EMBOLISM AND THOMBOS UNSP DEEP VEINS OF L LOW EXTREM SNOMED Code(s): 772926239 (3) Pulmonary embolism Current Visit: Yes Status: Chronic Code(s): I26.99 - OTHER PULMONARY EMBOLISM WITHOUT ACUTE COR PULMONALE SNOMED Code(s): 12010395 Plan: History of DVT and PE -Noted to have DVT of the left lower extremity approximately 25 years ago followed by pulmonary embolism more recently approximately 10 years ago -No evidence of recurrent VTE since this time and has been on anticoagulation with therapeutic Xarelto -Given his prior episodes of VTE have been greater than 12 months, he would be at a lower thrombotic risk -There is a higher bleeding risk associated with total hip arthroplasty with a 2 to 4% 2-day risk of major bleeding -Given surgery was performed today, I recommended prophylactic anticoagulation with lovenox 40 mg subcutaneously -Anticoagulation with xarleto is often held for 48 hours after higher risk bleeding procedures -If he has no evidence of significant bleeding and is discharged on 12/24/22, xarelto could be resumed in the evening of 12/24/22 at home as long as there is no contraindication from an orthopedic perspective -Follow up with his regular traffic incident management manager outpatient for further management of xarelto
[2022-12-23] MEDS ORDERED: RIVAROXABAN 20 MG TAB PO SCH (17:30)
[2022-12-23] MEDS ORDERED: ENOXAPARIN 40 MG/0.4 ML SYRINGE SQ SCH (18:00)
--- NOTE | 2022-12-23 18:31 | P.CONS ---
History of Present Illness - Reason for Consult Consult date: 12/23/22 Mangement of medical problems Requesting physician: Bobby Rich - Chief Complaint Left hip arthroplasty - History of Present Illness 77-year-old male patient with a past medical history significant for lifelong anticoagulation for recurrent pulmonary embolism, osteoarthritis of the left hip, GERD and obesity had left hip arthroplasty done this morning by Dr. Tashia canales. On direct questioning patient complained of some postop pain otherwise denied any chest pain nausea or diaphoresis palpitations shortness of breath or dizziness. Patient was seen by PT to help with ambulation and the plan was to discharge the patient home tomorrow. Patient was also seen by hematology and is currently on subcu Lovenox The plan is to start the patient on Xaralto tomorrow Review of Systems Review of systems obtained for all systems, noted to be negative other than that which is mentioned in the HPI Past Medical History Past Medical History: Chest Pain / Angina, Deep Vein Thrombosis (DVT), GERD/Reflux, Osteoarthritis (OA), Pulmonary Embolus (PE) Additional Past Medical History / Comment(s): DVT bilateral legs/lung approximately 7 yrs ago, chest pain many years ago, past benign colon polyps History of Any Multi-Drug Resistant Organisms: None Reported Past Surgical History: Appendectomy, Hernia Repair, Joint Replacement, Orthopedic Surgery, Tonsillectomy Additional Past Surgical History / Comment(s): Total R reverse shoulder replacement, L thumb fused, R carpal tunnel release, colonoscopies/benign polyps, cataracts removed bilaterally, umbilical hernia, hemorrhoidectomy Additional Past Anesthesia/Blood Transfusion Reaction / Comm: Pt has never had a blood transfusion. Past Psychological History: No Psychological Hx Reported Additional Psychological History / Comment(s): Pt resides with spouse Smoking Status: Former smoker Past Alcohol Use History: Occasional Additional Past Alcohol Use History / Comment(s): Pt started smoking in 1963 and quit at age 31 yrs/1975 - Past Family History Mother Family Medical History: No Reported History Father Family Medical History: Myocardial Infarction ([place]), Vascular Disorder Additional Family Medical History / Comment(s): Aneurysms, [place] in his 60s Brother(s) Family Medical History: Myocardial Infarction ([place]) Additional Family Medical History / Comment(s): [place] in his 60s Medications and Allergies Home Medications Medication Instructions Recorded Confirmed Type Multivit-Min/Folic/Vit K/Lycop 1 each PO HS 10/10/22 12/23/22 History [Men's Multivitamin Tablet] Rivaroxaban [Xarelto] 20 mg PO W/SUPPER 10/10/22 12/23/22 History Docusate [Colace] 100 mg PO BID #60 capsule 12/23/22 Rx HYDROcodone/APAP 5-325MG [[place] 1 - 2 tab PO Q6HR PRN 7 Days #32 12/23/22 Rx 5-325] tab Omeprazole 40 mg PO DAILY 30 Days #30 cap 12/23/22 Rx Allergies Allergy/AdvReac Type Severity Reaction Status Date / Time No Known Allergies Allergy Verified 12/23/22 06:12 Physical Exam Vitals: Vital Signs Temp Pulse Pulse Resp BP Pulse Ox 12/23/22 15:13 96.0 F L 65 18 94/60 97 12/23/22 12:52 96.2 F L 56 L 19 108/64 96 12/23/22 12:01 48 L 6 L 102/58 94 L 12/23/22 11:30 43 L 16 105/65 95 12/23/22 11:00 51 L 14 100/60 100 12/23/22 10:45 47 L 14 101/64 100 12/23/22 10:30 52 L 14 99/59 100 12/23/22 10:15 51 L 14 112/67 97 12/23/22 10:07 97 F L 59 L 14 112/67 97 12/23/22 07:08 55 L 16 110/74 97 12/23/22 06:11 97.7 F 62 18 123/80 96 Intake and Output 12/23/22 12/23/22 12/23/22 06:59 14:59 22:59 Intake Total 100 1650 Output Total 250 100 Balance 100 1400 -100 Intake: IV 100 1650 Output: Drainage 100 Left Hip 100 Urine 50 Estimated Blood Loss 200 Other: Weight 94.8 kg 94.8 kg Constitutional: No acute distress, conversant, pleasant Eyes: Anicteric sclerae, moist conjunctiva, Pupils equal round reactive to light ENMT: NC/AT Oropharynx clear, no erythema, or exudates Neck: Supple, no masses, or JVD No carotid bruits No thyromegaly Lungs: Normal breath sounds no crackles or wheezes heard Cardiovascular: Heart regular in rate and rhythm, No murmurs, gallops, or rubs No peripheral edema Abdominal: Soft Nontender, no guarding, rebound or rigidity Abdomen moving with respiration Normoactive bowel sounds No hepatomegaly, No splenomegaly No palpable mass No abdominal wall hernia noted Skin: Normal temperature, tone, texture, turgor No induration No subcutaneous nodules No rash, lesions No ulcers Extremities: No digital cyanosis No clubbing Pedal pulses intact and symmetrical Radial pulses intact and symmetrical No calf tenderness Diffuse tenderness noted over the left hip Psychiatric: Alert and oriented to person, place and time Appropriate affect fair judgement Assessment and Plan Assessment: Assessment and plan: Pulmonary embolism, recurrent: -To continue subcu Lovenox -To start Xaralto tomorrow GERD: -Continue pantoprazole Obesity: -Patient was strongly advised eat a low-fat low-calorie diet and continue to take regular exercise DVT prophylaxis: Continue subcu Lovenox, to start Xaralto tomorrow Date of discharge: Likely tomorrow home with home PT
[2022-12-23] MEDS ORDERED: SENNOSIDES-DOCUSATE SODIUM 1 EACH TAB PO SCH (21:00)
[2022-12-24] MEDS: LACTATED RINGERS 1,000 ML IV SCH ×2 (06:28→07:51)
[2022-12-24] MEDS ORDERED: PANTOPRAZOLE 40 MG TABLET PO SCH (07:30)
--- NOTE | 2022-12-24 07:49 | P.PN ---
Subjective Progress Note Date: 12/24/22 Patient is doing well this morning. He has minor discomfort in the left hip and is otherwise without complaints. He denies chest pain or shortness of breath. Objective - Vital Signs Vital signs: Vital Signs Temp 98.1 F 12/24/22 01:28 Pulse 80 12/24/22 01:28 Resp 17 12/24/22 01:28 BP 95/56 12/24/22 01:28 Pulse Ox 96 12/24/22 01:28 FiO2 Intake & Output 12/23/22 12/24/22 12/24/22 18:59 06:59 18:59 Intake Total 1650 Output Total 350 Balance 1300 Weight 94.8 kg Intake: IV 1650 Output: Drainage 100 Left Hip 100 Urine 50 Estimated Blood Loss 200 Other: # Voids 3 # Bowel Movements 0 - Exam The patient is resting comfortably in his bed. He is alert and able to answer questions. On inspection of the left hip there is a clean-appearing dressing over the anterior aspect of the hip. The drain is in place and was removed without difficulty. There is a small amount of blood in the canister. Femoral nerve function is intact. Distally he is able to actively plantarflex and dorsiflex his ankles and toes. Assessment and Plan Assessment: Postoperative day #1 status post left direct anterior total hip arthroplasty History of DVT and PE Plan: 1. Weightbearing as tolerated left lower extremity, up with assistance 2. Physical therapy for gait training 3. 2 doses of postoperative antibiotics 4. Appreciate internal medicine and hematology consultations 5. DVT prophylaxis with Lovenox and the patient can resumes Xarelto this evening after discharge home for hematology. 6. Disposition: The patient is going to attempt discharge home later today. He is okay to discharge as long as he passes therapy and is comfortable.
--- NOTE | 2022-12-24 07:52 | P.DS ---
Providers Date of admission: 12/23/2022 Expected date of discharge: 12/24/22 Attending physician: Bobby Rich Consults: 12/23/22 10:24 Consult Physician Routine Consulting Provider: Zenon Sanabria Consult Reason/Comments: anticoagulation recommendations - hx DVT/PE Do you want consulting provider notified?: Yes Consult Physician Routine Consulting Provider: Sheron Liu Consult Reason/Comments: medical management Do you want consulting provider notified?: Yes Primary care physician: Physician Nonstaff Hospital Course: Patient is a very pleasant 77-year-old male who underwent an uncomplicated left total hip replacement yesterday. Following surgery he was admitted under my care to the orthopedics floor. He was seen and evaluated by internal medicine. Hematology consultation was also placed given his history of DVT and PE. The patient was treated with Lovenox for DVT prophylaxis. He did well postoperatively. He worked with physical therapy. His drain was pulled postoperative day #1. He was ultimately cleared for discharge home. Plan - Discharge Summary Discharge Rx Participant: No New Discharge Prescriptions: New Docusate [Colace] 100 mg PO BID #60 capsule Omeprazole 40 mg PO DAILY 30 Days #30 cap HYDROcodone/APAP 5-325MG [[place] 5-325] 1 - 2 tab PO Q6HR PRN 7 Days #32 tab PRN Reason: Pain No Action Rivaroxaban [Xarelto] 20 mg PO W/SUPPER Multivit-Min/Folic/Vit K/Lycop [Men's Multivitamin Tablet] 1 each PO HS Discharge Medication List Multivit-Min/Folic/Vit K/Lycop [Men's Multivitamin Tablet] 1 each PO HS 10/10/22 [History] Rivaroxaban [Xarelto] 20 mg PO W/SUPPER 10/10/22 [History] Docusate [Colace] 100 mg PO BID #60 capsule 12/23/22 [Rx] HYDROcodone/APAP 5-325MG [[place] 5-325] 1 - 2 tab PO Q6HR PRN 7 Days #32 tab 12/23/22 [Rx] Omeprazole 40 mg PO DAILY 30 Days #30 cap 12/23/22 [Rx] Follow up Appointment(s)/Referral(s): Bobby Rich MD [Medical Doctor] - 2 Weeks Activity/Diet/Wound Care/Special Instructions: Weight bear to tolerance on operative extremity with a walker. Keep operative dressing in place until follow-up in the office. Call the office if dressing becomes saturated or falls off. May shower over dressing. Take pain medications as needed. Resume Xarelto for blood clot prevention. Follow-up in the office in two weeks at [facility]. Call the office with any questions or concerns, Discharge Disposition: HOME WITH HOME HEALTH SERVICES
[2022-12-24 08:24] VITALS: BP 97/61; PULSE 77; RESP 18; TEMP 98.3
[2022-12-24] MEDS: HYDROcodone/APAP 5-325MG 1 EACH TAB PO PRN (10:02)
[2022-12-24 10:14] LABS: Basophils # (A) 0.02 X 10*3/uL (0.00-0.10); Basophils % (A) 0.2 %; Eosinophils # (A) 0 X 10*3/uL (0.04-0.35); Eosinophils % (A) 0 %; HCT 32.9 % (39.6-50.0); HGB 10.8 g/dL (13.0-17.0); Lymphocytes # (A) 1.69 X 10*3/uL (0.90-5.00); MCH 32.1 pg (27.0-32.0); MCHC 32.8 g/dL (32.0-37.0); MCV 97.9 fL (80.0-97.0); Mean Platelet Volume 10.3 fL (9.5-12.2); Monocytes # (A) 0.95 X 10*3/uL (0.20-1.00); Monocytes % (A) 7.9 %; Neutrophils # (A) 9.34 X 10*3/uL (1.80-7.70); Neutrophils % (A) 77.3 %; Platelet Count 185 X 10*3/uL (140-440); RBC 3.36 X 10*6/uL (4.40-5.60); RDW 13.4 % (11.5-14.5); WBC 12.07 X 10*3/uL (4.50-10.00)
[2022-12-24 10:15] LABS: Immature Grans, Automated 0.6 %; NRBC Per 100 WBC 0 /100 WBCS (0.0-0.0)
--- NOTE | 2022-12-24 10:42 | P.PN ---
Subjective Progress Note Date: 12/24/22 Subjective: Patient seen and examined at bedside. No acute events overnight. He denies any chest pain, shortness of breath, abdominal pain, nausea, vomiting, diarrhea, constipation, or urinary complaints. He has minimal tenderness in the left hip. Pertinent positives and negatives as discussed above, a complete review of systems was performed and all other systems are negative. Vitals Signs Reviewed. General: nontoxic, no distress, appears at stated age Derm: warm, dry, dressing dry, intact, clean Head: atraumatic, normocephalic, symmetric Eyes: EOMI, no lid lag, anicteric sclera Mouth: no lip lesion, mucus membranes moist Cardiovascular: S1S2 reg, no murmur Lungs: CTA bilateral, no rhonchi, no rales , no accessory muscle use Abdominal: soft, nontender to palpation, no guarding, no appreciable organomegaly Ext: no gross muscle atrophy, no edema, no contractures Neuro: CN II-XI grossly intact, no focal neuro deficits Psych: Alert, oriented, appropriate affect Data Reviewed Today: Pertinent Labs: WBC 12.07, hemoglobin 10.8 Assessment and Plan: History of recurrent PE GERD Obesity Status post left hip arthroplasty Leukocytosis, reactive Normocytic anemia, expected outcome of surgery -Patient to continue Xarelto starting tonight -Otherwise medically optimized for discharge home. Thank you for allowing us to participate in the care of this pleasant patient. Do not hesitate to contact us with questions. Someone can be reached from the [facility] hospitalist group all hours of the day at [phone] or via [employer] serve. Objective - Vital Signs Vital signs: Vital Signs Temp 98.3 F 12/24/22 08:01 Pulse 77 12/24/22 10:13 Resp 18 12/24/22 10:13 BP 97/61 12/24/22 08:01 Pulse Ox 95 12/24/22 08:01 FiO2 Intake & Output 12/23/22 12/24/22 12/24/22 18:59 06:59 18:59 Intake Total 1650 Output Total 350 50 Balance 1300 -50 Weight 94.8 kg Intake: IV 1650 Output: Drainage 100 Left Hip 100 Urine 50 50 Estimated Blood Loss 200 Other: # Voids 3 3 # Bowel Movements 0 0 - Labs CBC & Chem 7: 12/24/22 05:37 Labs: Abnormal Lab Results - Last 24 Hours (Table) 12/24/22 Range/Units 05:37 WBC 12.07 H (4.50-10.00) X 10*3/uL RBC 3.36 L (4.40-5.60) X 10*6/uL Hgb 10.8 L (13.0-17.0) g/dL Hct 32.9 L (39.6-50.0) % MCV 97.9 H (80.0-97.0) fL MCH 32.1 H (27.0-32.0) pg Immature Gran # 0.07 H (0.00-0.04) X 10*3/uL Neutrophils # 9.34 H (1.80-7.70) X 10*3/uL Eosinophils # 0 L (0.04-0.35) X 10*3/uL
== END 2022-12-24 11:15 | disposition home health service (06) ==
LOC: OR 05:45 → 4SSUR 10:07 → OR 12-24 11:15
PROVIDERS: ATTEND Orthopaedic Surgery
DX: M16.12 Unilateral primary osteoarthritis, left hip (principal); Z86.718 Personal history of other venous thrombosis and embolism; Z86.711 Personal history of pulmonary embolism; G89.18 Other acute postprocedural pain; F10.20 Alcohol dependence, uncomplicated; Z79.01 Long term (current) use of anticoagulants; Z79.1 Long term (current) use of non-steroidal anti-inflammatories (NSAID); Z96.611 Presence of right artificial shoulder joint; Z90.49 Acquired absence of other specified parts of digestive tract; Z98.890 Other specified postprocedural states
CPT/HCPCS: 27130; 97116; 97161; 64447; 76942; 86900; 86901; 85025; 86850; 73501; C1776; J2250; J0330; J1100; J0690 ×2; J2405; J1650; J3010; J2795; J1885; J2704; J1170

== ENCOUNTER → 2023-01-12 | Outpatient (CLI) | payer MEDICARE, BC | END | disposition home or self-care (01) | LOC: LABWHC1 10:57 | PROVIDERS: ATTEND Physician Assistant | DX: M25.552 Pain in left hip (principal); Z96.642 Presence of left artificial hip joint; Z47.1 Aftercare following joint replacement surgery; L60.9 Nail disorder, unspecified | CPT/HCPCS: 36415; 86140 ==

== ENCOUNTER → 2023-01-16 | Outpatient (CLI) | payer MEDICARE, BC ==
--- NOTE | 2023-01-16 14:32 | CT ---
EXAMINATION TYPE: CT hip LT wo con CT DLP: 434 mGycm, Automated exposure control for dose reduction was used. DATE OF EXAM: 01/16/2023 2:17 PM COMPARISON : Fluoroscopic images of the left hip from 12/23/2022. CLINICAL INDICATION:Male, 77 years old with history of Z47.1, M25.552m Z96.642; PHH, Left hip pain, s /p hip replacement 1 mo ago TECHNIQUE: Axial images were obtained of the left hip without the use of IV contrast. Additional cor onal and sagittal reformatted images and soft tissue and bone window were obtained for review. 3-D re construction was created on a separate workstation. FINDINGS: Postsurgical changes from total left hip arthroplasty. Hardware appears intact with appropr iate alignment. This creates streak artifact which limits evaluation. No periprosthetic lucency ident ified to suggest loosening. No acute fracture, subluxation, dislocation. No significant soft tissue s welling or joint effusion is identified. No focal muscular atrophy or edema is identified. Colonic diverticulosis identified without visualized acute diverticulitis. Fat filled left inguinal h ernia. IMPRESSION: 1. Postsurgical changes from total left hip arthroplasty. This creates streak artifact which limits evaluation. Hardware appears intact with appropriate alignment. No evidence for loosening. 2. No acute fracture or dislocation.
== END | disposition home or self-care (01) ==
LOC: RADCTMAIN 13:56
PROVIDERS: ATTEND Orthopaedic Surgery
DX: M25.552 Pain in left hip (principal); L60.9 Nail disorder, unspecified; Z47.1 Aftercare following joint replacement surgery; Z96.642 Presence of left artificial hip joint

== ENCOUNTER → 2023-01-19 | Outpatient (CLI) | payer MEDICARE, BC | END | disposition home or self-care (01) | LOC: LABWHC1 11:48 | PROVIDERS: ATTEND Physician Assistant | DX: M25.552 Pain in left hip (principal); L60.9 Nail disorder, unspecified; Z96.642 Presence of left artificial hip joint | CPT/HCPCS: 36415; 86140 ==